=== PATIENT | male | born 1995 | race Two or more races ===

== ENCOUNTER 2018-11-06 17:21 | Emergency (ER) | payer OTHER ==
[2018-11-06 18:04] VITALS: BP 136/78; PULSE 94; RESP 18; TEMP 98.1
[2018-11-06] MEDS ORDERED: cefTRIAXone 250 MG VIAL IM STA (19:14)
[2018-11-06] MEDS ORDERED: AZITHROMYCIN 500 MG TAB PO STA (19:15)
--- NOTE | 2018-11-06 20:34 | ED ---
General Adult HPI - General Chief complaint: Recheck/Abnormal Lab/Rx Stated complaint: Tested for STI Time Seen by Provider: 11/06/18 18:49 Source: patient, RN notes reviewed, old records reviewed Mode of arrival: ambulatory Limitations: no limitations - History of Present Illness Initial comments: 22-year-old male patient no pertinent past history presents ED for evaluation and potential treatment of sexually transmitted infections. Patient reports that he is advised by his sexual partner to be checked for possible herpes simplex virus. Patient also requests that he wishes to the tested and treated for gonorrhea and chlamydia. Patient hasn't dysuria, patient denies any scrotal or testicular pain. Patient denies any urethral discharge. Patient does complain of waxing and waning penile ulcerations and crusted lesions on the dorsal aspect of his penis. Patient reports this is has been ongoing for approximately 4 months. Patient denies other complaints. Systemic: Pt denies fatigue, myalgia, fever/chills, rash. Pt denies weakness, night sweats, weight loss. Neuro: Pt denies headache, visual disturbances, syncope or pre-syncope. HEENT: Pt denies ocular discharge or irritation, otalgia, rhinorrhea, pharyngitis or notable lymphadenopathy. Cardiopulmonary: Pt denies chest pain, SOB, heart palpitations, dyspnea on exertion. Abdominal/GI: Pt denies abdominal pain, n/v/d. : Pt denies dysuria, burning w/ urination, frequency/urgency. Denies new onset urinary or bowel incontinence. MSK: Pt denies myalgia, loss of strength or function in extremities. Neuro: Pt denies new onset weakness, paresthesias. - Related Data Previous Rx's Medication Instructions Recorded Acyclovir [Zovirax] 400 mg PO TID 5 Days #15 tab 11/06/18 Allergies Allergy/AdvReac Type Severity Reaction Status Date / Time No Known Allergies Allergy Verified 11/06/18 18:04 Review of Systems ROS Statement: Those systems with pertinent positive or pertinent negative responses have been documented in the HPI. ROS Other: All systems not noted in ROS Statement are negative. Past Medical History Past Medical History: No Reported History History of Any Multi-Drug Resistant Organisms: None Reported Additional Past Surgical History / Comment(s): right eye surgery Past Psychological History: No Psychological Hx Reported Smoking Status: Current every day smoker Past Alcohol Use History: Occasional Past Drug Use History: Marijuana General Exam - General Exam Comments Initial Comments: Constitutional: NAD, AOX3, Pt has pleasant affect. HEENT: NC/AT, trachea midline, neck supple, no lymphadenopathy. Posterior pharynx non erythematous, without exudates. External ears appear normal, without discharge. Mucous membranes moist. Eyes PERRLA, EOM intact. There is no scleral icterus. No pallor noted. Cardiopulmonary: RRR, no murmurs, rubs or gallops, no JVD noted. Lungs CTAB in anterior and posterior hurley. No peripheral edema. Abdominal exam: Abdomen soft and non-distended. Abdomen non-tender to palpation in all 4 quadrants. Bowel sounds active in LLQ. No hepatosplenomegaly. No ecchymosis Neuro: CN II-XII grossly intact. No nuchal rigidity. MSK: No posterior calf tenderness bilaterally, homans sign negative bilaterally. Posterior tibialis and radial pulse +2 bilaterally. Sensation intact in upper and lower extremities. Full active ROM in upper and lower extremities, 5/5 stregnth. : Multiple healed scabbed lesions noted on dorsal aspect of penis, likely prior hsv erruption. No active lesions, no penile discharge, no scrotal or testicular tenderness to palpation, or erythema. Limitations: no limitations Course Vital Signs 11/06/18 18:01 Temperature 98.1 F Pulse Rate 94 Respiratory 18 Rate Blood Pressure 136/78 O2 Sat by Pulse 97 Oximetry Medical Decision Making - Medical Decision Making 22-year-old male patient no pertinent past history presents ED for evaluation and potential treatment of sexually transmitted infections. Patient reports that he is advised by his sexual partner to be checked for possible herpes simplex virus. Patient also requests that he wishes to the tested and treated for gonorrhea and chlamydia. Patient hasn't dysuria, patient denies any scrotal or testicular pain. Patient denies any urethral discharge. Patient does complain of waxing and waning penile ulcerations and crusted lesions on the dorsal aspect of his penis. Patient reports this is has been ongoing for approximately 4 months. Patient denies other complaints. Patient vital signs stable, afebrile. Physical exam displayed: Multiple healed scabbed lesions noted on dorsal aspect of penis, likely prior hsv erruption. No active lesions, no penile discharge, no scrotal or testicular tenderness to palpation, or erythema. Patient to be treated empirically for gonorrhea/chlamydia at his request. Patient will be tested for gonorrhea and chlamydia and called with the results. Patient is treated with acyclovir for HSV eruption. Patient follow up with his primary care provider for further evaluation treatment. Patient to return to ER if condition worsens in any way. Case discussed with Dr. Street. Disposition Clinical Impression: Herpes simplex virus (HSV) infection, Possible exposure to STD Disposition: HOME SELF-CARE Condition: Stable Instructions (If sedation given, give patient instructions): Genital Herpes Simplex (ED) Additional Instructions: Patient to adhere to previously discussed treatment plan and will take medication(s) as directed. Patient to follow up with PCP in 1-2 days. Patient to return to ED if symptoms do not improve. Please take medication as prescribed. Please follow-up with primary care provider in 1-2 days for continued evaluation. Prescriptions: Acyclovir [Zovirax] 400 mg PO TID 5 Days #15 tab Is patient prescribed a controlled substance at d/c from ED?: No Referrals: Abel Gardner MD [Primary Care Provider] - 1-2 days Time of Disposition: 20:34
[2018-11-07 15:44] LABS: C. trachomatis,PCR Negative (Neg,Equiv); Chlamydia trachomatis Source Urine; N. gonorrhoeae,PCR Negative (Neg,Equiv); Neisseria Source Urine
== END 2018-11-06 20:43 | disposition home or self-care (01) ==
LOC: EC 17:21
DX: B00.9 Herpesviral infection, unspecified (principal); Z20.2 Contact with and (suspected) exposure to infections with a predominantly sexual mode of transmission; F17.200 Nicotine dependence, unspecified, uncomplicated
CPT/HCPCS: 87491; 87591; 99283; 96372; J0696

== ENCOUNTER 2018-11-22 23:23 | Inpatient (IN) | payer OTHER ==
[2018-11-22] MEDS ORDERED: DIPH,PERTUS(ACELL)TETVAC-LF 0.5 ML VIAL IM ONE (23:33)
[2018-11-22] MEDS ORDERED: SODIUM CHLORIDE 0.9% 1,000 ML IV STA (23:33)
[2018-11-22 23:39] LABS: Basophils # (A) 0.1 k/uL (0-0.2); Basophils % (A) 1 %; Eosinophils # (A) 0.3 k/uL (0-0.7); Eosinophils % (A) 2 %; HCT 44.5 % (39.0-53.0); HGB 15.2 gm/dL (13.0-17.5); Lymphocytes % (A) 43 %; MCH 29.5 pg (25.0-35.0); MCHC 34.1 g/dL (31.0-37.0); MCV 86.6 fL (80.0-100.0); Mean Platelet Volume 8.2; Monocytes # (A) 0.6 k/uL (0-1.0); Monocytes % (A) 5 %; Neutrophils # (A) 5.4 k/uL (1.3-7.7); Neutrophils % (A) 46 %; Platelet Count 290 k/uL (150-450); RBC 5.14 m/uL (4.30-5.90); WBC 11.7 k/uL (3.8-10.6)
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
[2018-11-22] MEDS ORDERED: ceFAZolin (PMX-bag) 1,000 MG in DEXTROSE/WATER 1 50ML.BAG IVPB ONE (23:45)
[2018-11-22 23:50] LABS: Glucose,Whole Blood 101 mg/dL (75-99)
[2018-11-22 23:50] LABS: INR 0.9 (<1.2); Partial Thromboplastin Time 25.5 sec (22.0-30.0); Prothrombin Time 10.2 sec (9.0-12.0)
[2018-11-22 23:54] LABS: ALT 38 U/L (21-72); AST 33 U/L (17-59); Albumin 4.7 g/dL (3.5-5.0); Alcohol 70 mg/dL; Alkaline Phosphatase 84 U/L (38-126); Amylase 59 U/L (30-110); Anion Gap 14 mmol/L; Blood Urea Nitrogen 14 mg/dL (9-20); Calcium 9.6 mg/dL (8.4-10.2); Carbon Dioxide 25 mmol/L (22-30); Chloride 101 mmol/L (98-107); Creatine Kinase 257 U/L (55-170); Glucose 89 mg/dL (74-99); Lipase 63 U/L (23-300); Potassium 3.6 mmol/L (3.5-5.1); Sodium 140 mmol/L (137-145); Total Bilirubin 0.3 mg/dL (0.2-1.3); Total Protein 8.3 g/dL (6.3-8.2)
--- NOTE | 2018-11-22 23:54 | XR ---
EXAM: XR Chest, 1 View CLINICAL HISTORY: trauma TECHNIQUE: Frontal view of the chest. COMPARISON: No relevant prior studies available. FINDINGS: Lungs: Unremarkable. No consolidation. Pleural space: Unremarkable. No pneumothorax. Heart: Unremarkable. No cardiomegaly. Mediastinum: Unremarkable. Bones/joints: Unremarkable. IMPRESSION: Normal chest x-ray.
[2018-11-23 00:05] LABS: Creatine Kinase MB 0.4 ng/mL (0.0-2.4); Troponin I <0.012 ng/mL (0.000-0.034)
[2018-11-23] MEDS ORDERED: ACETAMINOPHEN TAB 325 MG TAB PO PRN (00:08)
[2018-11-23] MEDS ORDERED: NALOXONE 0.4 MG/ML 1 ML VIAL IV PRN ×2 (00:08→02:11)
[2018-11-23] MEDS ORDERED: IBUPROFEN 400 MG TAB PO PRN (00:08)
[2018-11-23] MEDS ORDERED: SODIUM CHLORIDE 0.9% 1,000 ML IV SCH (00:15)
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
[2018-11-23] MEDS ORDERED: ceFAZolin IN SWFI 2 GM/20 ML SYRINGE IVP STA (00:17)
[2018-11-23] MEDS ORDERED: HEPARIN SODIUM,PORCINE 5,000 UNIT/ML 1 ML VIAL SQ ONE (00:18)
[2018-11-23] MEDS ORDERED: IV FLUID CONTINUATION 1,000 ML IV ONE (00:25)
[2018-11-23] MEDS ORDERED: NEOSTIGMINE 1 MG/ML 10 ML VIAL ONE (00:26)
[2018-11-23] MEDS ORDERED: fentaNYL (PF) 50 MCG/ML 2 ML AMP ONE (00:26)
[2018-11-23] MEDS ORDERED: GLYCOPYRROLATE 0.2 MG/ML 2 ML VIAL ONE (00:26)
[2018-11-23] MEDS ORDERED: HALOPERIDOL LACTATE 5 MG/ML 1 ML VIAL IVP PRN (00:26)
[2018-11-23] MEDS ORDERED: SUCCINYLCHOLINE CHLORIDE VIAL 200 MG/10 ML VIAL IV ONE (00:26)
[2018-11-23] MEDS ORDERED: PROPOFOL 10 MG/ML 20 ML VIAL IV ONE (00:26)
[2018-11-23] MEDS ORDERED: ROCURONIUM BROMIDE 10 MG/ML 10 ML VIAL IV ONE (00:26)
[2018-11-23] MEDS ORDERED: DEXAMETHASONE SOD PHOS (MDV) 100 MG/10 ML VIAL ONE (00:26)
[2018-11-23] MEDS ORDERED: ONDANSETRON 4 MG/2 ML VIAL ONE (00:26)
[2018-11-23] MEDS ORDERED: LIDOCAINE 1% INJ 10MG/ML (20 ML MDV) ONE (00:26)
[2018-11-23] MEDS ORDERED: HYDROmorphone (PF) 1 MG/ML ONE (00:26)
[2018-11-23] MEDS ORDERED: SODIUM CHLORIDE 0.9% IV ONE ×2 (00:32)
[2018-11-23] MEDS ORDERED: CEFAZOLIN IV ONE ×2 (00:32)
[2018-11-23 01:54] LABS: Large Platelets Present
[2018-11-23] MEDS ORDERED: SODIUM CHLORIDE 0.9% 2,000 ML IV ONE (02:15)
[2018-11-23] MEDS: KETOROLAC 30 MG/ML 1 ML VIAL IVP SCH ×4 (02:26→20:11)
[2018-11-23] MEDS: HYDROmorphone 0.5 MG/0.5 ML SYRINGE IVP PRN ×4 (02:35→21:27)
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
[2018-11-23] MEDS ORDERED: LACTATED RINGERS 1,000 ML IV ONE (03:03)
[2018-11-23 03:27] LABS: Glucose,Whole Blood 207 mg/dL (75-99)
[2018-11-23] MEDS: ONDANSETRON 4 MG/2 ML VIAL IVP PRN (05:27)
[2018-11-23 05:49] LABS: ALT 32 U/L (21-72); AST 22 U/L (17-59); Alkaline Phosphatase 63 U/L (38-126); Anion Gap 10 mmol/L; Blood Urea Nitrogen 14 mg/dL (9-20); Calcium 7.8 mg/dL (8.4-10.2); Carbon Dioxide 20 mmol/L (22-30); Chloride 106 mmol/L (98-107); Glucose 196 mg/dL (74-99); Magnesium 1.5 mg/dL (1.6-2.3); Phosphorus 5.9 mg/dL (2.5-4.5); Potassium 4.1 mmol/L (3.5-5.1); Sodium 136 mmol/L (137-145); Total Bilirubin 0.2 mg/dL (0.2-1.3); Total Protein 5.5 g/dL (6.3-8.2)
[2018-11-23] MEDS ORDERED: ceFAZolin IN SWFI 2 GM/20 ML SYRINGE IVP SCH (06:00)
[2018-11-23] MEDS ORDERED: METOCLOPRAMIDE 5 MG/ML 2 ML VIAL IVP PRN (06:00)
[2018-11-23 06:01] LABS: INR 1.1 (<1.2); Partial Thromboplastin Time 22.4 sec (22.0-30.0); Prothrombin Time 11.2 sec (9.0-12.0)
[2018-11-23] MEDS: D5-0.45% NACL WITH KCL 20MEQ/L 1,000 ML IV SCH ×2 (06:06→15:38)
[2018-11-23 06:17] LABS: Basophils # (A) 0.2 k/uL (0-0.2); Basophils % (A) 1 %; Eosinophils # (A) 0.1 k/uL (0-0.7); Eosinophils % (A) 0 %; HCT 32.3 % (39.0-53.0); Lymphocytes # (A) 2.1 k/uL (1.0-4.8); Lymphocytes % (A) 6 %; MCH 29.6 pg (25.0-35.0); MCHC 33.4 g/dL (31.0-37.0); MCV 88.4 fL (80.0-100.0); Mean Platelet Volume 8.7; Monocytes # (A) 1.1 k/uL (0-1.0); Monocytes % (A) 3 %; Neutrophils # (A) 31.5 k/uL (1.3-7.7); Neutrophils % (A) 90 %; Platelet Count 271 k/uL (150-450); RBC 3.65 m/uL (4.30-5.90); RDW 13.7 % (11.5-15.5)
[2018-11-23 06:22] LABS: HGB 10.8 gm/dL (13.0-17.5)
[2018-11-23] MEDS ORDERED: Magnesium Replacement Protocol 1 EACH MISC MISCELLANE PRN (06:36)
[2018-11-23] MEDS: SODIUM CHLORIDE 0.9% 1,000 ML IV SCH ×3 (06:43→16:45)
[2018-11-23] MEDS: MAGNESIUM SULFATE-D5W PMX 1 GM in DEXTROSE/WATER 1 100ML.BAG IVPB SCH ×2 (06:43→11:30)
[2018-11-23 08:05] LABS: INR 1.1 (<1.2); Prothrombin Time 11.6 sec (9.0-12.0)
[2018-11-23 08:10] LABS: Anion Gap 10 mmol/L; Blood Urea Nitrogen 17 mg/dL (9-20); Calcium 7.8 mg/dL (8.4-10.2); Carbon Dioxide 20 mmol/L (22-30); Chloride 107 mmol/L (98-107); Glucose 202 mg/dL (74-99); Magnesium 1.7 mg/dL (1.6-2.3); Phosphorus 5.6 mg/dL (2.5-4.5); Potassium 5.3 mmol/L (3.5-5.1); Sodium 137 mmol/L (137-145)
--- NOTE | 2018-11-23 08:35 | XR ---
EXAMINATION TYPE: XR chest 1V DATE OF EXAM: 11/23/2018 COMPARISON: 11/22/2017 HISTORY: Pain TECHNIQUE: Single frontal view of the chest is obtained. FINDINGS: There are now near complete opacification left hemithorax which could be on the basis of p leural fluid collection in combination of consolidated lung. Right lung is clear. No sizable pneumoth orax. IMPRESSION: Near complete consolidation of the left lung is new. Report called to the ICU nurse.
[2018-11-23 08:42] LABS: HCT 32.4 % (39.0-53.0); HGB 10.6 gm/dL (13.0-17.5); MCH 29.2 pg (25.0-35.0); MCHC 32.8 g/dL (31.0-37.0); Mean Platelet Volume 10.1; Platelet Count 233 k/uL (150-450); RBC 3.63 m/uL (4.30-5.90); RDW 14.3 % (11.5-15.5); WBC 36.5 k/uL (3.8-10.6)
[2018-11-23] MEDS ORDERED: RX INFO: IV CONTRAST WAS GIVEN 1 EACH MISC MISCELLANE PRN (08:45)
[2018-11-23] MEDS ORDERED: FAMOTIDINE 20 MG TAB PO SCH (09:00)
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
--- NOTE | 2018-11-23 10:10 | ECHOF ---
Referral Reason:tachyarrhythmia MEASUREMENTS -------- HEIGHT: 182.9 cm WEIGHT: 90.3 kg BP: IVSd: 1.5 cm (0.6 - 1.1) LVIDd: 3.6 cm (3.9 - 5.3) LVPWd: 1.7 cm (0.6 - 1.1) IVSs: 1.7 cm LVIDs: 3.0 cm LVPWs: 1.4 cm IVSd: 1.8 cm (0.6 - 1.1) LVIDd: 3.8 cm (3.9 - 5.3) LVPWd: 1.5 cm (0.6 - 1.1) IVSs: 1.9 cm LVIDs: 1.9 cm LVPWs: 2.6 cm EDV(Teich): 62 ml ESV(Teich): 10 ml EF(Teich): 83 % %FS: 51 % SV(Teich): 51 ml Ao Diam: 3.4 cm (2.0 - 3.7) AV Cusp: 2.7 cm (1.5 - 2.6) LA Diam: 3.4 cm (2.7 - 3.8) MV E Carlos: 0.53 m/s MV DecT: 141 ms MV A Carlos: 0.77 m/s MV E/A Ratio: 0.69 RAP: 5.00 mmHg RVSP: 15.32 mmHg FINDINGS -------- Resting tachycardia (HR>100bpm). This was a technically adequate study. The left ventricular size is normal. There is severe concentric left ventricular hypertrophy. Ove rall left ventricular systolic function is normal with, an EF between 55 - 60 %. The right ventricle is normal in size. The left atrial size is normal. The right atrial size is normal. There is mild aortic valve sclerosis. There is no evidence of aortic regurgitation. Mild mitral annular calcification present. Mild mitral regurgitation is present. Mild tricuspid regurgitation present. There is no evidence of pulmonary hypertension. The right v entricular systolic pressure, as measured by Doppler, is 15.32mmHg. There is no pulmonic regurgitation present. The aortic root size is normal. There is no pericardial effusion. Large global Pleural Effusion. CONCLUSIONS -------- 1. The left ventricular size is normal. 2. There is severe concentric left ventricular hypertrophy. 3. Overall left ventricular systolic function is normal with, an EF between 55 - 60 %. 4. The right ventricle is normal in size. 5. The left atrial size is normal. 6. The right atrial size is normal. 7. There is mild aortic valve sclerosis. 8. Mild mitral annular calcification present. 9. Mild mitral regurgitation is present. 10. Mild tricuspid regurgitation present. 11. There is no evidence of pulmonary hypertension. 12. The right ventricular systolic pressure, as measured by Doppler, is 15.32mmHg. 13. There is no pulmonic regurgitation present. 14. The aortic root size is normal. 15. There is no pericardial effusion. 16. Large global Pleural Effusion. [employer] CHARGER: Federica Mcfadden RDCS
[2018-11-23 10:39] LABS: Band Neutrophils % 1 %; Lymphocytes # (M) 1.46 k/uL (1.0-4.8); Monocytes # (M) 0.37 k/uL (0-1.0); Neutrophils % (M) 94 %; Nucleated Red Blood Cells 0 /100 WBC (0-0); Total Cells Counted 100
[2018-11-23 10:54] LABS: Basophils # (A) 0.1 k/uL (0-0.2); Basophils % (A) 0 %; Eosinophils # (A) 0.7 k/uL (0-0.7); Eosinophils % (A) 2 %; HCT 29.9 % (39.0-53.0); HGB 9.8 gm/dL (13.0-17.5); Lymphocytes # (A) 1.3 k/uL (1.0-4.8); Lymphocytes % (A) 4 %; MCH 28.9 pg (25.0-35.0); MCHC 32.8 g/dL (31.0-37.0); MCV 88.2 fL (80.0-100.0); Mean Platelet Volume 9.9; Monocytes # (A) 1.3 k/uL (0-1.0); Monocytes % (A) 4 %; Neutrophils % (A) 91 %; Platelet Count 235 k/uL (150-450); RDW 14.5 % (11.5-15.5); WBC 36.4 k/uL (3.8-10.6)
--- NOTE | 2018-11-23 10:54 | PCN ---
PROCEDURE NOTE PROCEDURE: Left chest tube. PREOPERATIVE DIAGNOSIS: Left hemothorax. POSTOPERATIVE DIAGNOSIS: Left hemothorax. FRAME RUNNER: Dr. Matos. ASSISTED BY: Dr. Sabina Humphrey, Lindsay Shepherd and Zofia Carmona. PROCEDURE: The left chest was cleansed with ChloraPrep. The area was sterilely draped. Next, a scalpel was used to make a small incision at the anterior axillary line fifth intercostal space. A #32-Slovenian chest tube was placed. Blood immediately came out of the chest. After about 2.5 L of blood, the chest tube was clamped. The chest tube was sutured in place and sterile dressing was applied. Chest x-ray showed proper placement of the chest tube and some relief of the blood in the left pleural space. The patient tolerated the procedure well without difficulty. A stat hemoglobin was checked. No additional recommendations are made. Cardiothoracic surgery was consulted. MMODL / IJN: [id number] /
--- NOTE | 2018-11-23 10:55 | XR ---
EXAMINATION TYPE: XR chest 1V portable DATE OF EXAM: 11/23/2018 COMPARISON: 11/23/2018 HISTORY: Chest tube placement TECHNIQUE: Single frontal view of the chest is obtained. FINDINGS: There is a hydropneumothorax on the left with chest tube placement. Pneumothorax measures approximately 15%. The amount of pleural fluid is reduced from the prior exam. Right lung remains luis carlos ar. Surgical cristofer in the abdomen noted. IMPRESSION: Interval placement of chest tube and reduction in amount of pleural fluid. 15% pneumotho rax noted.
[2018-11-23 11:15] LABS: Appearance,Urine Clear (Clear); Bilirubin,Urine Negative (Negative); Blood,Urine Negative (Negative); Color,Urine Yellow; Glucose,Urine (UA) 1+ (Negative); Ketones,Urine Trace (Negative); Leukocyte Esterase,Urine Negative (Negative); Nitrite,Urine Negative (Negative); Protein,Urine Negative (Negative); Urobilinogen,Urine <2.0 mg/dL (<2.0)
[2018-11-23 11:27] LABS: Amphetamine Screen,Urine Not Detected (NotDetected); Barbiturate Screen,Urine Not Detected (NotDetected); Benzodiazepines Screen,Urine Not Detected (NotDetected); Cocaine Screen,Urine Not Detected (NotDetected); Methadone Screen, Urine Not Detected (NotDetected); Opiate Screen,Urine Detected (NotDetected); Oxycodone Screen, Urine Not Detected (NotDetected); Phencyclidine Screen,Urine Not Detected (NotDetected); Tricyclic Antidepressant,Urine Not Detected (NotDetected); Urn Cannabinoid Scrn Detected (NotDetected)
[2018-11-23] MEDS: PIPERACILLIN-TAZOBACTAM 3.375 GM in SODIUM CHLORIDE 0.9% 100 ML IVPB SCH ×3 (11:32→23:04)
[2018-11-23] MEDS: DOCUSATE 100 MG CAP PO SCH ×2 (11:41→21:49)
[2018-11-23] MEDS: HEPARIN SODIUM,PORCINE 5,000 UNIT/ML 1 ML VIAL SQ SCH ×2 (11:41→21:49)
[2018-11-23] MEDS: PANTOPRAZOLE 40 MG/10 ML VIAL IV SCH (11:43)
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
--- NOTE | 2018-11-23 14:32 | P.PN ---
Subjective Progress Note Date: 11/23/18 Family at bedside. All events noted including output from chest tube over 2000+ mL. Cardiothoracic team reviewed with me no surgical intervention at this time. Family updated for continued ICU care including physicians following. All questions were addressed and answered. Echo results reviewed and corrected as no new pleural effusion found per discussion with cardiothoracic team. Will hold anticoagulants with only SCDs. Continue with antibiotics for chest tube management. Critical care time: additional 22 min Objective - Vital Signs Vital signs: Vital Signs Temp 98.4 F 11/23/18 08:00 Pulse 121 H 11/23/18 13:00 Resp 21 11/23/18 13:00 BP 125/67 11/23/18 13:00 Pulse Ox 97 11/23/18 13:00 Intake & Output 11/22/18 11/23/18 11/23/18 18:59 06:59 18:59 Intake Total 2920 2720 Output Total 400 3475 Balance 2520 -755 Weight 90.718 kg Intake: IV 2920 2720 D5-0.45% NaCl with KCl 120 720 20Meq/l 1,000 ml @ 120 mls/hr IV .Q8H20M JOHAN Rx# :[id number] Sodium Chloride 0.9% 2, 2000 2000 000 ml @ 999 mls/hr IV . Q2H1M ONE Rx#:[id number] Output: Drainage 2890 Left 2890 Urine 300 585 Estimated Blood Loss 100 Other: # Voids 0 0 - Labs CBC & Chem 7: 12/02/18 10:44 11/30/18 07:31 Labs: Abnormal Lab Results - Last 24 Hours (Table) 11/22/18 11/22/18 11/22/18 Range/Units 23:28 23:28 23:28 WBC 11.7 H (3.8-10.6) k/uL RBC (4.30-5.90) m/uL Hgb (13.0-17.5) gm/dL Hct (39.0-53.0) % Neutrophils # (1.3-7.7) k/uL Neutrophils # (Manual) (1.3-7.7) k/uL Lymphocytes # 5.0 H (1.0-4.8) k/uL Monocytes # (0-1.0) k/uL Sodium (137-145) mmol/L Potassium (3.5-5.1) mmol/L Carbon Dioxide (22-30) mmol/L Glucose (74-99) mg/dL POC Glucose (mg/dL) (75-99) mg/dL Plasma Lactic Acid Kirit (0.7-2.0) mmol/L Calcium (8.4-10.2) mg/dL Phosphorus (2.5-4.5) mg/dL Magnesium (1.6-2.3) mg/dL Total Creatine Kinase 257 H (55-170) U/L Troponin I (0.000-0.034) ng/mL Total Protein 8.3 H (6.3-8.2) g/dL Albumin (3.5-5.0) g/dL Ur Specific [place] (1.001-1.035) Urine Glucose (UA) (Negative) Urine Ketones (Negative) Urine Opiates Screen (NotDetected) U Marijuana (THC) Screen (NotDetected) Crossmatch 11/22/18 11/22/18 11/22/18 Range/Units 23:28 23:28 23:30 WBC (3.8-10.6) k/uL RBC (4.30-5.90) m/uL Hgb (13.0-17.5) gm/dL Hct (39.0-53.0) % Neutrophils # (1.3-7.7) k/uL Neutrophils # (Manual) (1.3-7.7) k/uL Lymphocytes # (1.0-4.8) k/uL Monocytes # (0-1.0) k/uL Sodium (137-145) mmol/L Potassium (3.5-5.1) mmol/L Carbon Dioxide (22-30) mmol/L Glucose (74-99) mg/dL POC Glucose (mg/dL) 101 H (75-99) mg/dL Plasma Lactic Acid Kirit 2.6 H* (0.7-2.0) mmol/L Calcium (8.4-10.2) mg/dL Phosphorus (2.5-4.5) mg/dL Magnesium (1.6-2.3) mg/dL Total Creatine Kinase (55-170) U/L Troponin I (0.000-0.034) ng/mL Total Protein (6.3-8.2) g/dL Albumin (3.5-5.0) g/dL Ur Specific [place] (1.001-1.035) Urine Glucose (UA) (Negative) Urine Ketones (Negative) Urine Opiates Screen (NotDetected) U Marijuana (THC) Screen (NotDetected) Crossmatch See Detail 11/23/18 11/23/18 11/23/18 Range/Units 03:26 04:47 04:47 WBC (3.8-10.6) k/uL RBC (4.30-5.90) m/uL Hgb (13.0-17.5) gm/dL Hct (39.0-53.0) % Neutrophils # (1.3-7.7) k/uL Neutrophils # (Manual) (1.3-7.7) k/uL Lymphocytes # (1.0-4.8) k/uL Monocytes # (0-1.0) k/uL Sodium (137-145) mmol/L Potassium (3.5-5.1) mmol/L Carbon Dioxide (22-30) mmol/L Glucose (74-99) mg/dL POC Glucose (mg/dL) 207 H (75-99) mg/dL Plasma Lactic Acid Kirit 3.1 H* (0.7-2.0) mmol/L Calcium (8.4-10.2) mg/dL Phosphorus (2.5-4.5) mg/dL Magnesium (1.6-2.3) mg/dL Total Creatine Kinase (55-170) U/L Troponin I 0.056 H* (0.000-0.034) ng/mL Total Protein (6.3-8.2) g/dL Albumin (3.5-5.0) g/dL Ur Specific [place] (1.001-1.035) Urine Glucose (UA) (Negative) Urine Ketones (Negative) Urine Opiates Screen (NotDetected) U Marijuana (THC) Screen (NotDetected) Crossmatch 11/23/18 11/23/18 11/23/18 Range/Units 04:53 04:53 07:38 WBC 35.0 H 36.5 H (3.8-10.6) k/uL RBC 3.65 L 3.63 L (4.30-5.90) m/uL Hgb 10.8 L D 10.6 L (13.0-17.5) gm/dL Hct 32.3 L 32.4 L (39.0-53.0) % Neutrophils # 31.5 H (1.3-7.7) k/uL Neutrophils # (Manual) 34.60 H (1.3-7.7) k/uL Lymphocytes # (1.0-4.8) k/uL Monocytes # 1.1 H (0-1.0) k/uL Sodium 136 L (137-145) mmol/L Potassium (3.5-5.1) mmol/L Carbon Dioxide 20 L (22-30) mmol/L Glucose 196 H (74-99) mg/dL POC Glucose (mg/dL) (75-99) mg/dL Plasma Lactic Acid Kirit (0.7-2.0) mmol/L Calcium 7.8 L (8.4-10.2) mg/dL Phosphorus 5.9 H (2.5-4.5) mg/dL Magnesium 1.5 L (1.6-2.3) mg/dL Total Creatine Kinase (55-170) U/L Troponin I (0.000-0.034) ng/mL Total Protein 5.5 L (6.3-8.2) g/dL Albumin 3.0 L (3.5-5.0) g/dL Ur Specific [place] (1.001-1.035) Urine Glucose (UA) (Negative) Urine Ketones (Negative) Urine Opiates Screen (NotDetected) U Marijuana (THC) Screen (NotDetected) Crossmatch 11/23/18 11/23/18 11/23/18 Range/Units 07:38 10:37 10:57 WBC 36.4 H (3.8-10.6) k/uL RBC 3.40 L (4.30-5.90) m/uL Hgb 9.8 L (13.0-17.5) gm/dL Hct 29.9 L (39.0-53.0) % Neutrophils # 33.0 H (1.3-7.7) k/uL Neutrophils # (Manual) (1.3-7.7) k/uL Lymphocytes # (1.0-4.8) k/uL Monocytes # 1.3 H (0-1.0) k/uL Sodium (137-145) mmol/L Potassium 5.3 H (3.5-5.1) mmol/L Carbon Dioxide 20 L (22-30) mmol/L Glucose 202 H (74-99) mg/dL POC Glucose (mg/dL) (75-99) mg/dL Plasma Lactic Acid Kirit (0.7-2.0) mmol/L Calcium 7.8 L (8.4-10.2) mg/dL Phosphorus 5.6 H (2.5-4.5) mg/dL Magnesium (1.6-2.3) mg/dL Total Creatine Kinase (55-170) U/L Troponin I (0.000-0.034) ng/mL Total Protein (6.3-8.2) g/dL Albumin (3.5-5.0) g/dL Ur Specific [place] (1.001-1.035) Urine Glucose (UA) (Negative) Urine Ketones (Negative) Urine Opiates Screen Detected H (NotDetected) U Marijuana (THC) Screen Detected H (NotDetected) Crossmatch 11/23/18 Range/Units 10:57 WBC (3.8-10.6) k/uL RBC (4.30-5.90) m/uL Hgb (13.0-17.5) gm/dL Hct (39.0-53.0) % Neutrophils # (1.3-7.7) k/uL Neutrophils # (Manual) (1.3-7.7) k/uL Lymphocytes # (1.0-4.8) k/uL Monocytes # (0-1.0) k/uL Sodium (137-145) mmol/L Potassium (3.5-5.1) mmol/L Carbon Dioxide (22-30) mmol/L Glucose (74-99) mg/dL POC Glucose (mg/dL) (75-99) mg/dL Plasma Lactic Acid Kirit (0.7-2.0) mmol/L Calcium (8.4-10.2) mg/dL Phosphorus (2.5-4.5) mg/dL Magnesium (1.6-2.3) mg/dL Total Creatine Kinase (55-170) U/L Troponin I (0.000-0.034) ng/mL Total Protein (6.3-8.2) g/dL Albumin (3.5-5.0) g/dL Ur Specific [place] 1.050 H (1.001-1.035) Urine Glucose (UA) 1+ H (Negative) Urine Ketones Trace H (Negative) Urine Opiates Screen (NotDetected) U Marijuana (THC) Screen (NotDetected) Crossmatch
[2018-11-23 16:11] LABS: Basophils % (A) 0 %; Eosinophils # (A) 0.3 k/uL (0-0.7); Eosinophils % (A) 1 %; HGB 8.8 gm/dL (13.0-17.5); Lymphocytes # (A) 1.6 k/uL (1.0-4.8); Lymphocytes % (A) 7 %; MCH 29.3 pg (25.0-35.0); MCV 86.1 fL (80.0-100.0); Mean Platelet Volume 10.7; Monocytes # (A) 1.3 k/uL (0-1.0); Monocytes % (A) 6 %; Neutrophils # (A) 20.4 k/uL (1.3-7.7); Neutrophils % (A) 86 %; Platelet Count 199 k/uL (150-450); RBC 3.02 m/uL (4.30-5.90); RDW 15.1 % (11.5-15.5); WBC 23.8 k/uL (3.8-10.6)
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
[2018-11-24] MEDS ORDERED: ceFAZolin 3 GM in SODIUM CHLORIDE 0.9% 100 ML IVPB ONE (00:30)
[2018-11-24] MEDS: SODIUM CHLORIDE 0.9% 1,000 ML IV SCH ×3 (01:04→19:03)
[2018-11-24] MEDS: KETOROLAC 30 MG/ML 1 ML VIAL IVP SCH ×4 (01:16→21:42)
[2018-11-24] MEDS: oxyCODONE-APAP 5-325MG 1 EACH TAB PO PRN ×4 (05:23→22:56)
--- NOTE | 2018-11-24 06:31 | XR ---
EXAMINATION TYPE: XR chest 1V DATE OF EXAM: 11/24/2018 HISTORY: chest. REFERENCE: Previous study dated 11/23/2018. FINDINGS: A left pleural drain remains in place. There is improved aeration of the left lung base. Ri ght lung is clear. The left-sided effusion. Heart size upper limits of normal. IMPRESSION: IMPROVED AERATION, LEFT LUNG BASE.
[2018-11-24 06:34] LABS: Basophils % (A) 0 %; Eosinophils # (A) 0.1 k/uL (0-0.7); Eosinophils % (A) 1 %; Lymphocytes # (A) 2.6 k/uL (1.0-4.8); Lymphocytes % (A) 15 %; MCH 29.3 pg (25.0-35.0); MCHC 34.1 g/dL (31.0-37.0); MCV 85.8 fL (80.0-100.0); Mean Platelet Volume 10.3; Monocytes # (A) 1.3 k/uL (0-1.0); Monocytes % (A) 8 %; Neutrophils # (A) 12.7 k/uL (1.3-7.7); Neutrophils % (A) 75 %; Platelet Count 172 k/uL (150-450); RDW 15.8 % (11.5-15.5)
[2018-11-24 06:41] LABS: HCT 19.7 % (39.0-53.0); HGB 6.7 gm/dL (13.0-17.5)
[2018-11-24 07:14] LABS: ALT 45 U/L (21-72); AST 113 U/L (17-59); Albumin 2.7 g/dL (3.5-5.0); Alkaline Phosphatase 50 U/L (38-126); Anion Gap 5 mmol/L; Blood Urea Nitrogen 13 mg/dL (9-20); Carbon Dioxide 25 mmol/L (22-30); Chloride 104 mmol/L (98-107); Glucose 96 mg/dL (74-99); Magnesium 1.9 mg/dL (1.6-2.3); Phosphorus 2.8 mg/dL (2.5-4.5); Potassium 4.7 mmol/L (3.5-5.1); Sodium 134 mmol/L (137-145); Total Bilirubin 0.4 mg/dL (0.2-1.3); Total Protein 4.9 g/dL (6.3-8.2)
[2018-11-24] MEDS: PIPERACILLIN-TAZOBACTAM 3.375 GM in SODIUM CHLORIDE 0.9% 100 ML IVPB SCH ×3 (08:40→23:09)
[2018-11-24] MEDS: PANTOPRAZOLE 40 MG/10 ML VIAL IV SCH (08:43)
[2018-11-24] MEDS: DOCUSATE 100 MG CAP PO SCH ×2 (08:43→21:43)
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
[2018-11-24] MEDS ORDERED: RX INFO: IV CONTRAST WAS GIVEN 1 EACH MISC MISCELLANE PRN ×2 (09:50→21:32)
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
[2018-11-24 13:22] LABS: Basophils % (A) 0 %; Eosinophils # (A) 0.2 k/uL (0-0.7); Eosinophils % (A) 1 %; HCT 23.6 % (39.0-53.0); Lymphocytes # (A) 2.3 k/uL (1.0-4.8); Lymphocytes % (A) 13 %; MCHC 33.9 g/dL (31.0-37.0); MCV 85.6 fL (80.0-100.0); Mean Platelet Volume 10.4; Monocytes # (A) 1.1 k/uL (0-1.0); Monocytes % (A) 7 %; Neutrophils # (A) 13.3 k/uL (1.3-7.7); Neutrophils % (A) 78 %; Platelet Count 167 k/uL (150-450); RBC 2.76 m/uL (4.30-5.90); RDW 15.7 % (11.5-15.5)
--- NOTE | 2018-11-24 23:40 | CT ---
EXAM: CT Chest With Intravenous Contrast CLINICAL HISTORY: ITS.REASON CT Reason: Left hemothorax TECHNIQUE: Axial computed tomography images of the chest with intravenous contrast. CTDI is 9 mGy and DLP is 410 mGy-cm. This CT exam was performed using one or more of the following dose reduction techniques: automated exposure control, adjustment of the mA and/or kV according to patient size, and/or use of iterative reconstruction technique. COMPARISON: CT chest 11/23/18 FINDINGS: See impression. IMPRESSION: In the short interval from 11/23/18, left-sided chest tube has been inserted which terminates in the left lower lobe. The pleural effusion has significantly decreased in size, now approximately 20-25% of the left hemithorax. Tiny/very thin pneumothorax is seen near the entry site of the chest tube.
[2018-11-25] MEDS: SODIUM CHLORIDE 0.9% 1,000 ML IV SCH ×3 (00:34→17:00)
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
[2018-11-25] MEDS: oxyCODONE-APAP 5-325MG 1 EACH TAB PO PRN ×5 (04:29→20:46)
[2018-11-25 06:00] LABS: Basophils % (A) 0 %; Eosinophils # (A) 0.2 k/uL (0-0.7); Eosinophils % (A) 1 %; HCT 21.5 % (39.0-53.0); HGB 7.6 gm/dL (13.0-17.5); Lymphocytes % (A) 14 %; MCH 31.1 pg (25.0-35.0); MCHC 35.5 g/dL (31.0-37.0); MCV 87.7 fL (80.0-100.0); Mean Platelet Volume 7.9; Monocytes # (A) 0.9 k/uL (0-1.0); Monocytes % (A) 6 %; Neutrophils % (A) 78 %; Platelet Count 187 k/uL (150-450); RBC 2.45 m/uL (4.30-5.90); RDW 14.2 % (11.5-15.5); WBC 14.2 k/uL (3.8-10.6)
[2018-11-25 06:15] LABS: Anion Gap 4 mmol/L; Blood Urea Nitrogen 6 mg/dL (9-20); Calcium 8.4 mg/dL (8.4-10.2); Carbon Dioxide 27 mmol/L (22-30); Chloride 104 mmol/L (98-107); Glucose 100 mg/dL (74-99); Magnesium 1.7 mg/dL (1.6-2.3); Potassium 3.9 mmol/L (3.5-5.1); Sodium 135 mmol/L (137-145)
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
[2018-11-25] MEDS ORDERED: Potassium Replacement Protocol 1 EACH MISC MISCELLANE PRN (06:40)
[2018-11-25] MEDS: MAGNESIUM SULFATE-D5W PMX 1 GM in DEXTROSE/WATER 1 100ML.BAG IVPB SCH ×2 (06:56→10:02)
[2018-11-25] MEDS ORDERED: POTASSIUM CHLORIDE ER 20 MEQ TAB.ER PO SCH (07:00)
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
[2018-11-25] MEDS: PIPERACILLIN-TAZOBACTAM 3.375 GM in SODIUM CHLORIDE 0.9% 100 ML IVPB SCH ×2 (10:02→17:00)
[2018-11-25] MEDS: PANTOPRAZOLE 40 MG/10 ML VIAL IV SCH (10:03)
[2018-11-25] MEDS: DOCUSATE 100 MG CAP PO SCH ×2 (10:03→20:44)
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
[2018-11-25] MEDS: KETOROLAC 30 MG/ML 1 ML VIAL IVP SCH ×2 (14:05→18:39)
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
[2018-11-26] MEDS: KETOROLAC 30 MG/ML 1 ML VIAL IVP SCH ×5 (00:09→23:41)
[2018-11-26] MEDS: PIPERACILLIN-TAZOBACTAM 3.375 GM in SODIUM CHLORIDE 0.9% 100 ML IVPB SCH ×4 (00:11→23:42)
[2018-11-26] MEDS: oxyCODONE-APAP 5-325MG 1 EACH TAB PO PRN ×5 (00:22→21:08)
[2018-11-26 06:12] LABS: HCT 22.2 % (39.0-53.0); HGB 7.3 gm/dL (13.0-17.5); MCHC 32.9 g/dL (31.0-37.0); MCV 88.2 fL (80.0-100.0); Mean Platelet Volume 7.7; Platelet Count 216 k/uL (150-450); RBC 2.51 m/uL (4.30-5.90); RDW 13.9 % (11.5-15.5); WBC 13.7 k/uL (3.8-10.6)
[2018-11-26 06:31] LABS: Anion Gap 8 mmol/L; Blood Urea Nitrogen 7 mg/dL (9-20); Calcium 8.5 mg/dL (8.4-10.2); Carbon Dioxide 25 mmol/L (22-30); Chloride 105 mmol/L (98-107); Glucose 77 mg/dL (74-99); Magnesium 1.8 mg/dL (1.6-2.3); Potassium 4.1 mmol/L (3.5-5.1); Sodium 138 mmol/L (137-145)
[2018-11-26] MEDS: SODIUM CHLORIDE 0.9% 1,000 ML IV SCH ×3 (08:31→18:04)
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
--- NOTE | 2018-11-26 08:34 | XR ---
EXAMINATION TYPE: XR chest 2V DATE OF EXAM: 11/26/2018 COMPARISON: 11/25/2018 HISTORY: Follow-up left-sided chest tube TECHNIQUE: Frontal and lateral views of the chest are obtained. FINDINGS: Left apical pneumothorax is increased slightly in size and currently measures 9.5 mm versus 2.8 mm pr eviously. Left-sided chest tube is unchanged in position. Pleural-parenchymal opacity left lower lobe is stable. Right lung is clear. The cardiac silhouette size is within normal limits. The osseous structures are grossly intact. IMPRESSION: 1. Left apical pneumothorax is increased slightly in size and currently measures 9.5 mm versus 2.8 m m previously. Left-sided chest tube is unchanged in position. Pleural-parenchymal opacity left lower lobe is stable.
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
[2018-11-26] MEDS: DOCUSATE 100 MG CAP PO SCH ×2 (10:41→21:08)
[2018-11-26] MEDS: PANTOPRAZOLE 40 MG/10 ML VIAL IV SCH (10:41)
--- NOTE | 2018-11-26 17:27 | CT ---
EXAMINATION TYPE: CT chest wo con DATE OF EXAM: 11/26/2018 COMPARISON: 11/24/2018 HISTORY: Follow up scan post chest tube. CT DLP: 448.2 mGycm. Automated Exposure Control for Dose Reduction was Utilized. TECHNIQUE: CT scan of the thorax is performed without IV contrast. FINDINGS: There is a left-sided chest tube. There is small pneumothorax on the left side less than 5%. There is also high attenuation in the pleural space in the left lower lung field consistent with hemothorax. There is airspace consolidation and atelectasis left lower lobe. Trachea is midline. Left upper lobe appears fairly normal. The right lung is clear. There is no mediastinal adenopathy. There are no enrique r masses. There is mild subcutaneous edema over the lateral aspect of the lower chest. IMPRESSION: There is left-sided hemopneumothorax that is slightly improved compared to last CT scan. There is decreased fluid. Atelectasis left lower lobe unchanged. There is improvement in atelectasis at the right posterior lung base compared to last exam.
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
[2018-11-27] MEDS: oxyCODONE-APAP 5-325MG 1 EACH TAB PO PRN ×4 (01:49→23:14)
[2018-11-27] MEDS: SODIUM CHLORIDE 0.9% 1,000 ML IV SCH ×3 (05:52→18:13)
[2018-11-27] MEDS: KETOROLAC 30 MG/ML 1 ML VIAL IVP SCH ×3 (05:53→18:12)
[2018-11-27 06:29] LABS: HCT 21.9 % (39.0-53.0); MCH 28.2 pg (25.0-35.0); MCV 88.1 fL (80.0-100.0); Mean Platelet Volume 7.4; Platelet Count 281 k/uL (150-450); RBC 2.49 m/uL (4.30-5.90); RDW 14.7 % (11.5-15.5); WBC 9.8 k/uL (3.8-10.6)
[2018-11-27 06:37] LABS: Anion Gap 6 mmol/L; Blood Urea Nitrogen 9 mg/dL (9-20); Calcium 8.5 mg/dL (8.4-10.2); Carbon Dioxide 25 mmol/L (22-30); Chloride 106 mmol/L (98-107); Glucose 83 mg/dL (74-99); Magnesium 1.7 mg/dL (1.6-2.3); Sodium 137 mmol/L (137-145)
[2018-11-27] MEDS: MAGNESIUM SULFATE-D5W PMX 1 GM in DEXTROSE/WATER 1 100ML.BAG IVPB SCH ×2 (07:04→09:00)
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
[2018-11-27] MEDS: PANTOPRAZOLE 40 MG/10 ML VIAL IV SCH (09:00)
[2018-11-27] MEDS: DOCUSATE 100 MG CAP PO SCH ×2 (09:00→20:41)
--- NOTE | 2018-11-27 09:12 | XR ---
EXAMINATION TYPE: XR chest 2V DATE OF EXAM: 11/27/2018 COMPARISON: 11/26/2018 TECHNIQUE: PA and lateral views submitted. HISTORY: Left pneumothorax FINDINGS: Left-sided chest tube remains in position and there is a persistent left sided pneumothorax measuring approximately 10-15%. Bilateral subsegmental consolidation and small effusion noted. Heart size stable. IMPRESSION: 1. Left-sided consolidation and hydropneumothorax is similar appearance to the prior exam. 2. Right basilar atelectasis or infiltrate with tiny effusion.
[2018-11-27] MEDS: PIPERACILLIN-TAZOBACTAM 3.375 GM in SODIUM CHLORIDE 0.9% 100 ML IVPB SCH ×3 (09:18→23:14)
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
[2018-11-27] MEDS ORDERED: MAGNESIUM HYDROXIDE 2,400 MG/10 ML CUP PO PRN (20:55)
[2018-11-27] MEDS: LACTULOSE 20 GM/30 ML CUP PO SCH (21:19)
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
[2018-11-28 06:25] LABS: Anisocytosis Slight; HCT 22.1 % (39.0-53.0); HGB 7.4 gm/dL (13.0-17.5); MCH 30.2 pg (25.0-35.0); MCHC 33.4 g/dL (31.0-37.0); MCV 90.6 fL (80.0-100.0); Mean Platelet Volume 7.6; Platelet Count 357 k/uL (150-450); RBC 2.44 m/uL (4.30-5.90); RDW 16.5 % (11.5-15.5); WBC 11.6 k/uL (3.8-10.6)
[2018-11-28 06:37] LABS: Anion Gap 6 mmol/L; Blood Urea Nitrogen 9 mg/dL (9-20); Calcium 8.7 mg/dL (8.4-10.2); Carbon Dioxide 25 mmol/L (22-30); Chloride 107 mmol/L (98-107); Glucose 78 mg/dL (74-99); Magnesium 1.8 mg/dL (1.6-2.3); Potassium 4.1 mmol/L (3.5-5.1); Sodium 138 mmol/L (137-145)
--- NOTE | 2018-11-28 07:45 | P.PN ---
Progress Note - Text Progress Note Date: 11/27/18 Patient clinically doing well. No additional surgical procedures planned per thoracic surgery. Anticipated discontinuance of chest tube. Otherwise no bowel movement. Started on milk of magnesia including Colace and lactulose.
[2018-11-28] MEDS: MAGNESIUM SULFATE-D5W PMX 1 GM in DEXTROSE/WATER 1 100ML.BAG IVPB SCH ×2 (07:55→09:39)
[2018-11-28] MEDS: LACTULOSE 20 GM/30 ML CUP PO SCH ×3 (08:01→21:51)
[2018-11-28] MEDS: DOCUSATE 100 MG CAP PO SCH ×2 (08:01→21:50)
[2018-11-28] MEDS: PIPERACILLIN-TAZOBACTAM 3.375 GM in SODIUM CHLORIDE 0.9% 100 ML IVPB SCH ×2 (08:01→16:02)
[2018-11-28] MEDS: PANTOPRAZOLE 40 MG TABLET PO SCH (08:01)
--- NOTE | 2018-11-28 08:38 | XR ---
EXAMINATION TYPE: XR chest 2V DATE OF EXAM: 11/28/2018 COMPARISON: Prior chest x-ray 11/27/2018 HISTORY: Left-sided chest tube, hemothorax TECHNIQUE: Frontal and lateral views of the chest are obtained. FINDINGS: Left-sided chest tube remains in place. Minimal pneumothorax persists. There is some impro loree aeration at the left lung base. There are overlying cardiac leads. No other significant change. IMPRESSION: Improvement as described.
[2018-11-28] MEDS: oxyCODONE-APAP 5-325MG 1 EACH TAB PO PRN ×2 (09:39→22:23)
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
[2018-11-28] MEDS: SODIUM CHLORIDE 0.9% 1,000 ML IV SCH (15:51)
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
[2018-11-28] MEDS ORDERED: DEXAMETHASONE SOD PHOSPHATE 10 MG/ML 1 ML VIAL IV ONE (20:57)
[2018-11-28] MEDS ORDERED: MIDAZOLAM 2 MG/2 ML VIAL IV PRN (20:57)
[2018-11-28] MEDS ORDERED: HYDROmorphone 0.5 MG/0.5 ML SYRINGE IVP PRN (20:57)
[2018-11-28] MEDS ORDERED: fentaNYL (PF) 50 MCG/ML 2 ML AMP IV PRN (20:57)
[2018-11-28] MEDS ORDERED: LIDOCAINE 1% 20 ML VIAL (10MG/ML) FOR IV START INTRADERMA PRN (20:57)
[2018-11-28] MEDS: LACTATED RINGERS 1,000 ML IV SCH (23:42)
[2018-11-29] MEDS: PIPERACILLIN-TAZOBACTAM 3.375 GM in SODIUM CHLORIDE 0.9% 100 ML IVPB SCH ×4 (01:04→23:53)
[2018-11-29] MEDS ORDERED: DEXAMETHASONE SOD PHOSPHATE 10 MG/ML 1 ML VIAL IV ONE (06:00)
[2018-11-29 06:22] LABS: HCT 24.7 % (39.0-53.0); HGB 7.5 gm/dL (13.0-17.5); Hypochromasia Slight; MCH 28.5 pg (25.0-35.0); MCHC 30.3 g/dL (31.0-37.0); MCV 94.2 fL (80.0-100.0); Mean Platelet Volume 7.5; Platelet Count 386 k/uL (150-450); Poikilocytosis Slight; RBC 2.63 m/uL (4.30-5.90); RDW 15.7 % (11.5-15.5); WBC 10.9 k/uL (3.8-10.6)
[2018-11-29 06:35] LABS: ALT 50 U/L (21-72); AST 48 U/L (17-59); Albumin 3.3 g/dL (3.5-5.0); Alkaline Phosphatase 56 U/L (38-126); Anion Gap 7 mmol/L; Blood Urea Nitrogen 9 mg/dL (9-20); Calcium 9.1 mg/dL (8.4-10.2); Carbon Dioxide 26 mmol/L (22-30); Chloride 107 mmol/L (98-107); Glucose 83 mg/dL (74-99); Potassium 4.1 mmol/L (3.5-5.1); Sodium 140 mmol/L (137-145); Total Bilirubin 0.2 mg/dL (0.2-1.3); Total Protein 6.1 g/dL (6.3-8.2)
[2018-11-29 07:00] LABS: Band Neutrophils % 1 %; Eosinophils # (M) 0.65 k/uL (0-0.7); Lymphocytes # (M) 3.92 k/uL (1.0-4.8); Monocytes # (M) 0.65 k/uL (0-1.0); Neutrophils % (M) 51 %; Nucleated Red Blood Cells 0 /100 WBC (0-0); Total Cells Counted 100
[2018-11-29 07:01] LABS: Polychromasia Present
[2018-11-29] MEDS: PANTOPRAZOLE 40 MG TABLET PO SCH (07:02)
[2018-11-29] MEDS ORDERED: ceFAZolin 2 GM in SODIUM CHLORIDE 0.9% 100 ML IVPB ONE (07:48)
[2018-11-29] MEDS: LACTULOSE 20 GM/30 ML CUP PO SCH ×4 (07:49→21:51)
[2018-11-29] MEDS: DOCUSATE 100 MG CAP PO SCH ×2 (07:49→20:36)
[2018-11-29] MEDS ORDERED: ceFAZolin IN SWFI 2 GM/20 ML SYRINGE IVP ONE (08:00)
[2018-11-29] MEDS: SODIUM CHLORIDE 0.9% 1,000 ML IV SCH (08:43)
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
[2018-11-29] MEDS: oxyCODONE-APAP 5-325MG 1 EACH TAB PO PRN ×3 (10:41→22:33)
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
[2018-11-29] MEDS ORDERED: IV FLUID CONTINUATION 1,000 ML IV ONE (12:46)
[2018-11-29] MEDS: ONDANSETRON 4 MG/2 ML VIAL IVP PRN (12:47)
[2018-11-29] MEDS ORDERED: MIDAZOLAM 2 MG/2 ML VIAL ONE (14:22)
[2018-11-29] MEDS ORDERED: NEOSTIGMINE 1 MG/ML 10 ML VIAL ONE (14:22)
[2018-11-29] MEDS ORDERED: ROCURONIUM BROMIDE 10 MG/ML 10 ML VIAL IV ONE (14:22)
[2018-11-29] MEDS ORDERED: fentaNYL (PF) 50 MCG/ML 2 ML AMP ONE (14:22)
[2018-11-29] MEDS ORDERED: LIDOCAINE 1% INJ 10MG/ML (20 ML MDV) ONE (14:22)
[2018-11-29] MEDS ORDERED: GLYCOPYRROLATE 0.2 MG/ML 2 ML VIAL ONE (14:22)
[2018-11-29] MEDS ORDERED: HYDROmorphone (PF) 1 MG/ML ONE (14:22)
[2018-11-29] MEDS ORDERED: PROPOFOL 10 MG/ML 20 ML VIAL IV ONE (14:22)
[2018-11-29] MEDS ORDERED: SUCCINYLCHOLINE CHLORIDE 100 MG/5 ML SYR IV ONE (14:22)
[2018-11-29] MEDS: LACTATED RINGERS 1,000 ML IV SCH ×2 (14:24→14:27)
[2018-11-29] MEDS ORDERED: SODIUM CHLORIDE 0.9% 100 ML with ceFAZolin (PMX-bag) 2,000 MG IV ONE ×2 (14:47)
[2018-11-29] MEDS ORDERED: BUPIVACAINE (PF) 0.5% 30 ML VIAL SQ ONE ×2 (15:00)
[2018-11-29] MEDS ORDERED: LACTATED RINGERS 1,000 ML IV ONE (16:08)
[2018-11-29] MEDS: MEPERIDINE 50 MG/ML SYRINGE IVP ONE ×3 (16:55→17:20)
--- NOTE | 2018-11-29 17:04 | XR ---
EXAMINATION TYPE: XR chest 1V portable DATE OF EXAM: 11/29/2018 COMPARISON: Yesterday HISTORY: Postop TECHNIQUE: Single frontal view of the chest is obtained. FINDINGS: There is a left chest tube. There is some patchy infiltrate left lower lobe. I see no pneu mothorax. Right lung is clear. There is slight blunting of left costophrenic angle. Heart size is nor mal. IMPRESSION: There is improved aeration left lower lobe compared to yesterday and decrease in the inf iltrate and pleural reaction. No heart failure. No pneumothorax.
--- NOTE | 2018-11-29 19:18 | P.PN ---
Progress Note - Text Progress Note Date: 11/29/18 Patient reevaluated following thoracoscopy. Groggy at bedside. Family at bedside. Patient now transferred from the ICU to the floor. Perioperative recovery pending recommendation from cardiothoracic surgery.
[2018-11-30] MEDS: KETOROLAC 30 MG/ML 1 ML VIAL IVP SCH ×5 (01:23→23:25)
[2018-11-30] MEDS: oxyCODONE-APAP 5-325MG 1 EACH TAB PO PRN ×5 (04:42→23:29)
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
[2018-11-30 08:00] LABS: HCT 25.9 % (39.0-53.0); HGB 8.3 gm/dL (13.0-17.5); Hypochromasia Moderate; MCH 29.5 pg (25.0-35.0); MCHC 31.9 g/dL (31.0-37.0); MCV 92.7 fL (80.0-100.0); Platelet Count 454 k/uL (150-450); Poikilocytosis Slight; RDW 15.4 % (11.5-15.5); WBC 21.6 k/uL (3.8-10.6)
[2018-11-30] MEDS: SODIUM CHLORIDE 0.9% 1,000 ML IV SCH (08:07)
[2018-11-30] MEDS: PANTOPRAZOLE 40 MG TABLET PO SCH (08:07)
[2018-11-30] MEDS: LACTULOSE 20 GM/30 ML CUP PO SCH ×4 (08:08→21:15)
[2018-11-30] MEDS: PIPERACILLIN-TAZOBACTAM 3.375 GM in SODIUM CHLORIDE 0.9% 100 ML IVPB SCH ×3 (08:08→23:27)
[2018-11-30] MEDS: DOCUSATE 100 MG CAP PO SCH ×2 (08:08→20:20)
[2018-11-30 08:15] LABS: Anion Gap 9 mmol/L; Blood Urea Nitrogen 9 mg/dL (9-20); Calcium 9.2 mg/dL (8.4-10.2); Carbon Dioxide 24 mmol/L (22-30); Chloride 102 mmol/L (98-107); Glucose 95 mg/dL (74-99); Potassium 4.4 mmol/L (3.5-5.1); Sodium 135 mmol/L (137-145)
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
[2018-11-30 15:03] VITALS: BMI 32.2
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
[2018-12-01] MEDS: oxyCODONE-APAP 5-325MG 1 EACH TAB PO PRN ×4 (04:24→20:42)
[2018-12-01] MEDS: KETOROLAC 30 MG/ML 1 ML VIAL IVP SCH ×4 (04:25→23:31)
[2018-12-01] MEDS: SODIUM CHLORIDE 0.9% 1,000 ML IV SCH ×2 (04:31→07:54)
--- NOTE | 2018-12-01 07:29 | XR ---
EXAMINATION TYPE: XR chest 1V portable DATE OF EXAM: 12/01/2018 HISTORY: chest tube. REFERENCE: Previous study dated 11/30/2018. FINDINGS: A left pleural drain remains in place. No sizable pneumothorax is seen. The heart is mildly enlarged. There is left basilar airspace disease. There are small, bilateral effu sions. IMPRESSION: NO SIGNIFICANT INTERVAL CHANGE IN APPEARANCE OF THE CHEST.
[2018-12-01] MEDS: DOCUSATE 100 MG CAP PO SCH ×2 (07:52→20:40)
[2018-12-01] MEDS: LACTULOSE 20 GM/30 ML CUP PO SCH ×4 (07:53→20:40)
[2018-12-01] MEDS: PANTOPRAZOLE 40 MG TABLET PO SCH (07:53)
[2018-12-01] MEDS: PIPERACILLIN-TAZOBACTAM 3.375 GM in SODIUM CHLORIDE 0.9% 100 ML IVPB SCH ×3 (07:54→23:40)
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
[2018-12-01 11:10] LABS: Basophils % (A) 0 %; Eosinophils # (A) 0.2 k/uL (0-0.7); Eosinophils % (A) 1 %; HCT 25.1 % (39.0-53.0); HGB 7.6 gm/dL (13.0-17.5); Hypochromasia Moderate; Lymphocytes % (A) 16 %; MCH 28.2 pg (25.0-35.0); MCHC 30.4 g/dL (31.0-37.0); MCV 92.9 fL (80.0-100.0); Mean Platelet Volume 7.3; Monocytes # (A) 1.5 k/uL (0-1.0); Monocytes % (A) 8 %; Neutrophils % (A) 73 %; Platelet Count 493 k/uL (150-450); Poikilocytosis Slight; RDW 14.5 % (11.5-15.5); WBC 19.2 k/uL (3.8-10.6)
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
--- NOTE | 2018-12-02 06:32 | XR ---
EXAMINATION TYPE: XR chest 2V DATE OF EXAM: 12/02/2018 HISTORY: Postoperative left VATS.. REFERENCE: Previous study dated 12/01/2018. FINDINGS: The patient's left pleural drain has been removed. No sizable pneumothorax is identified. Heart size upper limits of normal. There is bibasilar atelectasis. There is a small right effusion. O verall aeration at the left lung base has improved. IMPRESSION: IMPROVED AERATION, LEFT LUNG BASE.
[2018-12-02] MEDS: KETOROLAC 30 MG/ML 1 ML VIAL IVP SCH ×3 (07:08→16:50)
[2018-12-02 07:47] VITALS: RESP 16
[2018-12-02] MEDS: PIPERACILLIN-TAZOBACTAM 3.375 GM in SODIUM CHLORIDE 0.9% 100 ML IVPB SCH ×3 (08:30→16:04)
[2018-12-02] MEDS: PANTOPRAZOLE 40 MG TABLET PO SCH (08:30)
[2018-12-02] MEDS: LACTULOSE 20 GM/30 ML CUP PO SCH ×3 (08:31→16:50)
[2018-12-02] MEDS: DOCUSATE 100 MG CAP PO SCH (08:31)
[2018-12-02] MEDS: oxyCODONE-APAP 5-325MG 1 EACH TAB PO PRN (08:35)
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
[2018-12-02 11:20] LABS: HGB 7.4 gm/dL (13.0-17.5); Hypochromasia Moderate; MCH 28.9 pg (25.0-35.0); MCV 90.3 fL (80.0-100.0); Mean Platelet Volume 7.6; Platelet Count 498 k/uL (150-450); Poikilocytosis Slight; RBC 2.55 m/uL (4.30-5.90); RDW 14.7 % (11.5-15.5); WBC 14.4 k/uL (3.8-10.6)
[2018-12-02 12:16] LABS: Band Neutrophils % 2 %; Eosinophils # (M) 0.43 k/uL (0-0.7); Lymphocytes # (M) 2.74 k/uL (1.0-4.8); Monocytes # (M) 0.72 k/uL (0-1.0); Myelocytes # (M) 0.14 k/uL (0); Myelocytes % 1 %; Neutrophils % (M) 71 %; Nucleated Red Blood Cells 0 /100 WBC (0-0); Total Cells Counted 200
[2018-12-02 12:25] LABS: Polychromasia Present
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
[2018-12-02 15:13] VITALS: BP 115/62; PULSE 107; TEMP 98.3
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
== END 2018-12-02 20:34 | DRG 853 ==
LOC: EC 23:23 → 2SICU 11-23 00:30 → 4SSUR 11-29 00:14
PROVIDERS: ADMIT Surgery Plastic and Reconstructive Surgery; ATTEND Surgery Plastic and Reconstructive Surgery
PROC: 0HQGXZZ Repair Left Hand Skin, External Approach (ICD-10-PCS; 2018-11-23)
PROC: 0W9B30Z Drainage of Left Pleural Cavity with Drainage Device, Percutaneous Approach (ICD-10-PCS; 2018-11-23)
PROC: 0W3F0ZZ Control Bleeding in Abdominal Wall, Open Approach (ICD-10-PCS; principal; 2018-11-23 00:07)
PROC: 30233N1 Transfusion of Nonautologous Red Blood Cells into Peripheral Vein, Percutaneous Approach (ICD-10-PCS; 2018-11-24)
PROC: 0W9B4ZZ Drainage of Left Pleural Cavity, Percutaneous Endoscopic Approach (ICD-10-PCS; 2018-11-29)
DX: A41.9 Sepsis, unspecified organism (principal); K65.0 Generalized (acute) peritonitis; D62 Acute posthemorrhagic anemia; E87.2 Acidosis; J94.2 Hemothorax; S27.301A Unspecified injury of lung, unilateral, initial encounter; K66.8 Other specified disorders of peritoneum; E83.42 Hypomagnesemia; E66.9 Obesity, unspecified; F10.129 Alcohol abuse with intoxication, unspecified; F17.200 Nicotine dependence, unspecified, uncomplicated; S61.412A Laceration without foreign body of left hand, initial encounter; M25.519 Pain in unspecified shoulder; S31.111A Laceration without foreign body of abdominal wall, left upper quadrant without penetration into peritoneal cavity, initial encounter; R77.9 Abnormality of plasma protein, unspecified; Z68.32 Body mass index [BMI] 32.0-32.9, adult; Z71.6 Tobacco abuse counseling; Z82.49 Family history of ischemic heart disease and other diseases of the circulatory system; Z82.5 Family history of asthma and other chronic lower respiratory diseases; Z83.3 Family history of diabetes mellitus; X99.1XXA Assault by knife, initial encounter; Y92.9 Unspecified place or not applicable
CPT/HCPCS: 36415; 71045; 71046; 71250; 71260; 71275; 80048; 80053; 80306; 80320; 81003; 82150; 82550; 82553; 83605; 83690; 83735; 84100; 84443; 84484; 85025; 85027; 85379; 85610; 85730; 86850; 86900; 86901; 86920; 87070; 87075; 87205; 88304; 90471; 90715; 93005; 93306; 94760; 96365; 96366; 96375; 99291